=== PATIENT | female | born 1985 | race Caucasian/White ===

== ENCOUNTER 2016-07-15 07:46 | Outpatient (CLI) | payer MEDICAID | END 2016-07-15 07:47 | disposition home or self-care (01) | DX: Z00.00 Encounter for general adult medical examination without abnormal findings (principal); R56.9 Unspecified convulsions ==

== ENCOUNTER 2017-01-05 18:51 | Emergency (ER) | payer OTHER, MEDICAID ==
[2017-01-05] MEDS ORDERED: IBUPROFEN 100 MG/5 ML UDC PO STA (18:58)
--- NOTE | 2017-01-05 18:59 | ED Physician Documentation ---
PD HPI LOWER EXT INJURY - Stated complaint Stated Complaint: LT ANKLE INJ - History obtained from History obtained from: Patient, Family (mom) - History of Present Illness Type of injury: Other (Inversion injury of the left ankle coming off a step wrong today around 3 PM. She is able to walk and bear weight but with quite a bit of pain.) Review of Systems Constitutional: reports: Reviewed and negative Throat: reports: Reviewed and negative Cardiac: reports: Reviewed and negative PD PAST MEDICAL HISTORY - Allergies Allergies/Adverse Reactions: Allergies Allergy/AdvReac Type Severity Reaction Status Date / Time sulfamethoxazole Allergy Anaphylaxis Verified 01/05/17 19:04 [From ] trimethoprim [From ] Allergy Anaphylaxis Verified 01/05/17 19:04 PD ED PE NORMAL - Vitals Vital signs reviewed: Yes - General General: No acute distress, Well developed/nourished - Extremities Extremities: Other (Tender and swollen to the left lateral malleolus without proximal fibular or medial joint line tenderness. No foot tenderness.) - Psych Psych: Normal mood, Normal affect Results - Vitals Vitals: Vital Signs - 24 hr 01/05/17 18:56 Temperature 36.3 C L Heart Rate 115 H Respiratory 18 Rate Blood Pressure 110/65 O2 Saturation 98 Oxygen O2 Source Room air - Rads (name of study) L ankle 3v Radiology: EMP read contemporaneously (no fracture) Departure - Departure Disposition: 01 Home, Self Care Clinical Impression: Left ankle sprain Qualifiers: Encounter type: initial encounter Involved ligament of ankle: anterior talofibular ligament Qualified Code(s): S93.492A - Sprain of other ligament of left ankle, initial encounter Condition: Good Record reviewed to determine appropriate education?: Yes Instructions: ED Sprain Ankle W X Ray Comments: Tylenol or ibuprofen as needed for pain. Return if worse. Follow-up with your doctor in 1 week if not significantly improved.
[2017-01-05 19:03] VITALS: BP 110/65
[2017-01-05] MEDS ORDERED: IBUPROFEN 100 MG/5 ML UDC ONE ×2 (19:12→19:14)
--- NOTE | 2017-01-05 19:35 | XRAY Preliminary Report ---
Exam: XR ANKLE 3 VIEW LT IMPRESSION: No bony abnormality. [facility] SITE ID: [id number]
--- NOTE | 2017-01-05 19:51 | XRAY Report ---
EXAM: LEFT ANKLE RADIOGRAPHY EXAM DATE: 01/05/2017 07:23 p.m. CLINICAL HISTORY: Lateral malleolar pain and edema after a fall today. COMPARISON: None. TECHNIQUE: 3 views. FINDINGS: Bones: Normal. No fractures or bone lesions. Joints: Normal. No effusion. No subluxations. The ankle mortise is normally aligned. Soft Tissues: Moderate edema over the lateral malleolus. IMPRESSION: No bony abnormality. [facility] Referring Provider Line: [phone] SITE ID: [id number]
== END 2017-01-05 19:52 | disposition home or self-care (01) ==
LOC: ED 18:51
DX: S93.492A Sprain of other ligament of left ankle, initial encounter (principal); X50.1XXA Overexertion from prolonged static or awkward postures, initial encounter
CPT/HCPCS: 73610; 99283; A9270

== ENCOUNTER 2017-01-17 19:14 | Emergency (ER) | payer MEDICAID ==
[2017-01-17 19:24] VITALS: BP 134/85
[2017-01-17] MEDS ORDERED: ACETAMINOPHEN 500 MG TABLET PO STA (19:33)
--- NOTE | 2017-01-17 19:35 | ED Physician Documentation ---
PD HPI LOWER EXT INJURY - Stated complaint Stated Complaint: RT ANKLE INJ - Chief complaint Chief Complaint: Trauma Ext - History obtained from History obtained from: Patient, Family - History of Present Illness PD HPI LOW EXT INJURY LOCATION: Right, Ankle, Foot Type of injury: Twist Where injury occurred: Street Timing - onset: How many hours ago (6) Timing - duration: Hours (6) Timing - details: Abrupt onset Pain level max: 6 Pain level now: 4 Improved by: Rest, Immobilization Worsened by: Moving, Palpating Associated symptoms: Swelling, Discolored (ecchymosis) Similar symptoms before: Diagnosis (sprain) Recently seen: Emergency Dept (last week for other ankle) Review of Systems Musculoskeletal: denies: Neck pain, Back pain Neurologic: denies: Focal weakness, Numbness, Head injury PD PAST MEDICAL HISTORY - Past Medical History Neuro: Seizure disorder - Past Surgical History HEENT: Tonsil/Adenoidectomy - Present Medications Home Medications: Ambulatory Orders Medication Instructions Recorded Confirmed Escitalopram [Lexapro] 10 mg PO DAILY 01/17/17 01/17/17 Ethynodiol D-Ethinyl Estradiol 1 tab PO BID 01/17/17 01/17/17 [Zovia 1-35E Tablet] Montelukast [Singulair] 10 mg PO DAILY 01/17/17 01/17/17 lamoTRIgine [Lamotrigine] 75 mg PO BID 01/17/17 01/17/17 - Allergies Allergies/Adverse Reactions: Allergies Allergy/AdvReac Type Severity Reaction Status Date / Time sulfamethoxazole Allergy Anaphylaxis Verified 01/17/17 19:18 [From ] trimethoprim [From ] Allergy Anaphylaxis Verified 01/17/17 19:18 - Social History Does the pt smoke?: No Smoking Status: Never smoker Does the pt drink ETOH?: No Does the pt have substance abuse?: No - Immunizations Immunizations are current?: Yes PD ED PE NORMAL - Vitals Vital signs reviewed: Yes - General General: Alert and oriented X 3, No acute distress - Derm Derm: Warm and dry - Extremities Extremities: Other (R foot - swelling, ecchymosis to the lateral malleolus and dorsum of the foot. NVI. foot is curled inward normal for patient. ) - Neuro Neuro: Alert and oriented X 3 - Psych Psych: Normal mood, Normal affect Results - Vitals Vitals: Vital Signs - 24 hr 01/17/17 19:19 Temperature 36.0 C L Heart Rate 115 H Respiratory 18 Rate Blood Pressure 134/85 H O2 Saturation 100 Oxygen O2 Source Room air - Rads (name of study) R ankle xray Radiology: Prelim report reviewed, EMP read contemporaneously, See rad report ( Normal ankle radiography. ) PD MEDICAL DECISION MAKING - ED course Complexity details: reviewed old records, reviewed results, re-evaluated patient , considered differential, d/w patient, d/w family ED course: No acute findings on x-ray. Has crutches at home. Declines a splint. Will follow up with her PCP. Patient and family counseled regarding signs and symptoms for which I believe and urgent re-evaluation would be necessary. Patient with good understanding of and agreement to plan and is comfortable going home at this time This document was made in part using voice recognition software. While efforts are made to proofread this document, sound alike and grammatical errors may occur. Departure - Departure Disposition: 01 Home, Self Care Clinical Impression: Right ankle sprain Qualifiers: Encounter type: initial encounter Involved ligament of ankle: unspecified ligament Qualified Code(s): S93.401A - Sprain of unspecified ligament of right ankle, initial encounter Condition: Good Instructions: ED Sprain Ankle Follow-Up: Agata Rubin PA-C [Primary Care Provider] - Within 1 week Comments: Return if you worsen. You may bear weight as tolerated. Your xray is normal today. Discharge Date/Time: 01/17/17 20:14
[2017-01-17] MEDS ORDERED: ACETAMINOPHEN 500 MG TABLET PO ONE (19:44)
--- NOTE | 2017-01-17 19:48 | XRAY Preliminary Report ---
Exam: XR ANKLE 3 VIEW RT IMPRESSION: Normal ankle radiography. [facility] SITE ID: [id number]
--- NOTE | 2017-01-17 19:51 | XRAY Report ---
EXAM: RIGHT ANKLE RADIOGRAPHY EXAM DATE: 01/17/2017 07:41 PM. CLINICAL HISTORY: Trauma, pain. COMPARISON: None. TECHNIQUE: 3 views. FINDINGS: Bones: Normal. No fractures or bone lesions. Joints: Normal. No effusion. No subluxations. The ankle mortise is normally aligned. Soft Tissues: Unremarkable. IMPRESSION: Normal ankle radiography. [facility] Referring Provider Line: [phone] SITE ID: [id number]
[2017-01-17] MEDS ORDERED: ACETAMINOPHEN 160 MG/5 ML SUSP UDC PO STA (19:57)
[2017-01-17] MEDS ORDERED: ACETAMINOPHEN 160 MG/5 ML SUSP UDC ONE (20:05)
== END 2017-01-17 20:14 | disposition home or self-care (01) ==
LOC: ED 19:14
DX: S93.401A Sprain of unspecified ligament of right ankle, initial encounter (principal); G40.909 Epilepsy, unspecified, not intractable, without status epilepticus; X50.1XXA Overexertion from prolonged static or awkward postures, initial encounter; Y92.410 Unspecified street and highway as the place of occurrence of the external cause
CPT/HCPCS: 73610; 99283; A9270

== ENCOUNTER 2018-03-02 07:48 | Outpatient (CLI) | payer MEDICAID ==
[2018-03-02 08:09] LABS: BASOPHILS # (AUTO) 0.1 10^3/uL (0.0-0.1); EOSINOPHILS # (AUTO) 0.2 10^3/uL (0.0-0.7); EOSINOPHILS % (AUTO) 2.5 %; HGB - HEMOGLOBIN 13.8 g/dL (12.0-16.0); LYMPHOCYTES % (AUTO) 34.6 %; MEAN CORPUSCULAR HEMOGLOBIN 30.1 pg (27.0-31.0); MEAN CORPUSCULAR HGB CONC 33.8 g/dL (32.0-36.0); MEAN CORPUSCULAR VOLUME 89.1 fL (81.0-99.0); MEAN PLATELET VOLUME 8.5 fL (7.9-10.8); MONOCYTES # (AUTO) 0.8 10^3/uL (0.0-1.0); MONOCYTES % (AUTO) 8.8 %; NEUTROPHILS # (AUTO) 4.6 10^3/uL (1.5-6.6); NEUTROPHILS % (AUTO) 53.1 %; PLT - PLATELET COUNT 479 10^3/uL (130-450); RED CELL DISTRIBUTION WIDTH 13.8 % (12.0-15.0); WHITE BLOOD COUNT 8.6 x10^3/uL (4.8-10.8)
[2018-03-02 08:26] LABS: ALBUMIN 3.4 g/dL (3.2-5.5); ALBUMIN/GLOBULIN RATIO 0.8 (1.0-2.2); ALKALINE PHOSPHATASE 103 IU/L (42-121); ALT ALANINE AMINOTRANSFERASE 34 IU/L (10-60); AST ASPARTATE AMINOTRANSFERASE 32 IU/L (10-42); BILIRUBIN,TOTAL 0.5 mg/dL (0.2-1.0); BUN - BLOOD UREA NITROGEN 15 mg/dL (6-20); CALCIUM 9.1 mg/dL (8.5-10.3); CARBON DIOXIDE - CO2 25 mmol/L (21-32); CHLORIDE 101 mmol/L (101-111); CHOL/HDL RATIO 4.9 (<4.4); CHOLESTEROL 301 mg/dL; CREATININE 0.8 mg/dL (0.4-1.0); GFR - MDRD 84 (>89); GLUCOSE 93 mg/dL (70-100); HDL CHOLESTEROL 61 mg/dL; LDL CHOLESTEROL,CALCULATED 201 mg/dL; LDL/HDL RATIO 3.3 (<4.4); SODIUM 138 mmol/L (135-145); TOTAL PROTEIN 7.7 g/dL (6.7-8.2); VLDL CHOLESTEROL 39 mg/dL
== END 2018-03-02 07:49 | disposition home or self-care (01) ==
LOC: LAB 07:48
PROVIDERS: ATTEND Physician Assistant Medical
DX: Z00.00 Encounter for general adult medical examination without abnormal findings (principal); R56.9 Unspecified convulsions
CPT/HCPCS: 36415; 80053; 80061; 80175; 83721; 84443; 85025

== ENCOUNTER 2018-12-04 09:20 | Outpatient (CLI) | payer MEDICAID | END 2018-12-04 09:21 | disposition home or self-care (01) | LOC: LAB 09:20 | PROVIDERS: ATTEND Psychiatry & Neurology Neurology | DX: G40.909 Epilepsy, unspecified, not intractable, without status epilepticus (principal) | CPT/HCPCS: 36415; 80175 ==

== ENCOUNTER 2020-08-27 09:21 | Outpatient (CLI) | payer MEDICAID ==
[2020-08-27 12:16] LABS: CHOL/HDL RATIO 4.6 (<4.4); CHOLESTEROL 266 mg/dL; HDL CHOLESTEROL 58 mg/dL; LDL CHOLESTEROL,CALCULATED 181 mg/dL; LDL/HDL RATIO 3.1 (<4.4); TRIGLYCERIDES 133 mg/dL; VLDL CHOLESTEROL 27 mg/dL
== END 2020-08-27 23:59 | disposition home or self-care (01) ==
LOC: LAB.WCP 09:21
PROVIDERS: ATTEND Physician Assistant Medical
DX: E78.5 Hyperlipidemia, unspecified (principal); R56.9 Unspecified convulsions
CPT/HCPCS: 36415; 80061; 80175; 83721

== ENCOUNTER 2020-09-14 13:59 | Emergency (ER) | payer MEDICAID ==
[2020-09-14] MEDS ORDERED: IBUPROFEN 100 MG/5 ML UDC PO STA (14:18)
--- NOTE | 2020-09-14 14:19 | ED Physician Documentation ---
PD HPI UPPER EXT INJURY - Stated complaint Stated Complaint: RIGHT ANKLE INJURY - Chief complaint Chief Complaint: Ext Problem - History obtained from History obtained from: Patient, Family (mom) - History of Present Illness Location: Right (Coming down 2 steps and missed stepped and twisted her ankle. Has moderate right ankle pain. She is able to walk and bear weight on it. No other injuries.) Timing - onset: Today Review of Systems Constitutional: reports: Reviewed and negative Eyes: reports: Reviewed and negative Ears: reports: Reviewed and negative Nose: reports: Reviewed and negative Throat: reports: Reviewed and negative Cardiac: reports: Reviewed and negative Respiratory: reports: Reviewed and negative PD PAST MEDICAL HISTORY - Past Surgical History HEENT: Tonsil/Adenoidectomy - Present Medications Home Medications: Ambulatory Orders Medication Instructions Recorded Confirmed Escitalopram [Lexapro] 10 mg PO DAILY 01/17/17 09/14/20 Montelukast [Singulair] 10 mg PO DAILY 01/17/17 09/14/20 Knee Scooter 1 unit TD ONCE #1 09/14/20 lamoTRIgine [LaMICtal] 100 mg PO BID 09/14/20 09/14/20 - Allergies Allergies/Adverse Reactions: Allergies Allergy/AdvReac Type Severity Reaction Status Date / Time sulfamethoxazole Allergy Anaphylaxis Verified 09/14/20 14:10 [From ] trimethoprim [From ] Allergy Anaphylaxis Verified 09/14/20 14:10 - Social History Does the pt smoke?: No Smoking Status: Never smoker Does the pt drink ETOH?: No Does the pt have substance abuse?: No - Immunizations Immunizations are current?: Yes PD ED PE NORMAL - Vitals Vital signs reviewed: Yes - General General: Alert and oriented X 3, No acute distress - Extremities Extremities: Other (Quite tender over the lateral malleolus. Mild tenderness over the medial malleolus. No proximal fibular or foot tenderness.) Results - Vitals Vitals: Vital Signs - 24 hr 09/14/20 14:04 Temperature 36.8 C Heart Rate 68 Respiratory 16 Rate Blood Pressure 112/68 O2 Saturation 99 Oxygen O2 Source Room air - Rads (name of study) 3 views of the right ankle x-ray Radiology: EMP read contemporaneously (Comminuted and displaced distal fibular fracture) Procedures - Splint (location) R ankle Splint applied by: Physician, Tech Type of splint: Other (A three-way posterior/stirrup right ankle splint was placed by myself and the tach, during splinting lateral pressure was placed on the foot to reduce the fracture) Other: Crutches provided Departure - Departure Disposition: 01 Home, Self Care Clinical Impression: Closed fracture of right distal fibula Qualifiers: Encounter type: initial encounter Fracture morphology: other fracture Qualified Code(s): S82.831A - Other fracture of upper and lower end of right fibula, initial encounter for closed fracture Condition: Good Record reviewed to determine appropriate education?: Yes Instructions: ED Fx Lower Ext Follow-Up: Arden Carter MD [Provider Admit Priv/Credential] - Prescriptions: Knee Scooter 1 unit TD ONCE #1 Comments: Follow-up with Dr. Carter within the week, call tomorrow for an appointment. Until then do not walk on it. She can take 400 mg of liquid ibuprofen every 6 hours as needed for pain. I am prescribing a knee scooter as well.
--- NOTE | 2020-09-14 14:48 | XRAY Report ---
PROCEDURE: Ankle 3 View RT INDICATIONS: ankle injury TECHNIQUE: 3 views of the ankle were acquired. COMPARISON: None FINDINGS: Bones: Comminuted displaced distal fibular fracture. No other fractures or dislocations. Ankle mortis e is normally aligned. No suspicious bony lesions. Soft tissues: No tibiotalar joint effusion. Achilles tendon appears normal. IMPRESSION: Comminuted, displaced distal fibular fracture. Reviewed by: Duane Frank MD on 09/14/2020 1:47 PM DELISA Approved by: Duane Frank MD on 09/14/2020 1:47 PM DELISA Station ID: [id number]
[2020-09-14 15:57] VITALS: BP 110/75
== END 2020-09-14 16:04 | disposition home or self-care (01) ==
LOC: ED 13:59
DX: S82.831A Other fracture of upper and lower end of right fibula, initial encounter for closed fracture (principal); W10.9XXA Fall (on) (from) unspecified stairs and steps, initial encounter
CPT/HCPCS: 29515; 73610; 99283; A9270

== ENCOUNTER 2020-11-03 08:45 | Outpatient (CLI) | payer MEDICAID ==
--- NOTE | 2020-11-03 10:32 | XRAY Report ---
PROCEDURE: Ankle 3 View RT INDICATIONS: DISPLACED FX OF R LATERAL MALLEOLUS TECHNIQUE: 3 views of the ankle were acquired. COMPARISON: 09/14/2020 FINDINGS: Bones: Healing displaced distal fibular fracture with good alignment. Ankle mortise is normally align ed. No suspicious bony lesions. Soft tissues: No tibiotalar joint effusion. Achilles tendon appears normal. IMPRESSION: Healing distal fibular fracture with good alignment. Reviewed by: Jose Luis Faust on 11/03/2020 10:30 AM PDT Approved by: Jose Luis Faust on 11/03/2020 10:30 AM PDT Station ID: [id number]
== END 2020-11-03 08:46 | disposition home or self-care (01) ==
LOC: DI.N 08:45
PROVIDERS: ATTEND Orthopaedic Surgery
DX: S82.831D Other fracture of upper and lower end of right fibula, subsequent encounter for closed fracture with routine healing (principal)

== ENCOUNTER 2021-09-22 16:28 | Outpatient (CLI) | payer MEDICAID ==
[2021-09-22 20:52] LABS: BASOPHILS # (AUTO) 0.1 10^3/uL (0.0-0.1); BASOPHILS % (AUTO) 1.1 %; EOSINOPHILS # (AUTO) 0.3 10^3/uL (0.0-0.7); EOSINOPHILS % (AUTO) 3.7 %; HCT - HEMATOCRIT 44.2 % (37.0-47.0); HGB - HEMOGLOBIN 13.7 g/dL (12.0-16.0); LYMPHOCYTES # (AUTO) 3.8 10^3/uL (1.5-3.5); LYMPHOCYTES % (AUTO) 50.7 %; MEAN CORPUSCULAR HEMOGLOBIN 29.5 pg (27.0-31.0); MEAN CORPUSCULAR VOLUME 95.1 fL (81.0-99.0); MEAN PLATELET VOLUME 11.6 fL (7.9-10.8); MONOCYTES # (AUTO) 0.9 10^3/uL (0.0-1.0); MONOCYTES % (AUTO) 12.4 %; NEUTROPHILS # (AUTO) 2.4 10^3/uL (1.5-6.6); PLT - PLATELET COUNT 399 10^3/uL (130-450); RED BLOOD COUNT 4.65 10^6/uL (4.20-5.40); RED CELL DISTRIBUTION WIDTH 14.6 % (12.0-15.0); WHITE BLOOD COUNT 7.6 x10^3/uL (4.8-10.8)
[2021-09-22 21:08] LABS: ALBUMIN 4.1 g/dL (3.2-5.5); ALBUMIN/GLOBULIN RATIO 1.1 (1.0-2.2); ALKALINE PHOSPHATASE 84 IU/L (42-121); ALT ALANINE AMINOTRANSFERASE 18 IU/L (10-60); AST ASPARTATE AMINOTRANSFERASE 21 IU/L (10-42); BILIRUBIN,TOTAL 0.5 mg/dL (0.2-1.0); BUN - BLOOD UREA NITROGEN 18 mg/dL (6-20); CARBON DIOXIDE - CO2 27 mmol/L (21-32); CHLORIDE 104 mmol/L (101-111); CHOL/HDL RATIO 5.2 (<4.4); CHOLESTEROL 293 mg/dL; GFR - MDRD 63 (>89); GLUCOSE 95 mg/dL (70-100); HDL CHOLESTEROL 56 mg/dL; LDL CHOLESTEROL,CALCULATED 209 mg/dL; LDL/HDL RATIO 3.7 (<4.4); POTASSIUM 3.7 mmol/L (3.5-5.0); SODIUM 142 mmol/L (135-145); TRIGLYCERIDES 140 mg/dL; VLDL CHOLESTEROL 28 mg/dL
[2021-09-22 21:17] LABS: THYROID STIMULATING HORMONE 1.17 uIU/mL (0.34-5.60)
== END 2021-09-22 16:29 | disposition home or self-care (01) ==
LOC: LAB.N 16:28
PROVIDERS: ATTEND Physician Assistant Medical
DX: Z00.00 Encounter for general adult medical examination without abnormal findings (principal); E78.5 Hyperlipidemia, unspecified
CPT/HCPCS: 36415; 80053; 80061; 83721; 84443; 85025